=== PATIENT | female | born 1955 | race Caucasian/White ===

== ENCOUNTER 2016-10-09 19:02 | Emergency (ER) | payer OTHER, BC ==
[~2016-10-09] VITALS: Ht 167.6 cm; Wt 98.1 kg
[~2016-10-09 19:02] MED LIST: ZOFRAN ODT4 MG PO
[2016-10-09 19:32] LABS: HEMATOCRIT 39.9 % (36.0-46.0); MCH 32.1 PG (29.0-34.0); MCHC 33.6 G/DL (30.0-36.0); MCV 95.7 FL (83-99); MEAN PLAT.VOLUME 11.5 uM^3 (9.5-12.4); PLATELET COUNT 236 K/uL (156-360); RBC DIS.WIDTH-CV 12.7 % (11.8-14.6); RED BLOOD COUNT 4.17 M/uL (3.80-5.20); WHITE BLOOD COUNT 8.1 K/uL (4.1-10.2)
[2016-10-09 19:46] LABS: CHLORIDE 108 mEq/L (99-109); POTASSIUM 4.1 mEq/L (3.7-5.4); SODIUM 140 mEq/L (136-147)
[2016-10-09 19:48] LABS: GLUCOSE 102 mg/dL (70-99)
[2016-10-09 19:49] LABS: ANION GAP 7 MEQ/L (2-14)
[2016-10-09 19:50] LABS: TOTAL BILIRUBIN 0.3 mg/dL (0.0-1.0)
[2016-10-09 19:51] LABS: ALKALINE PHOSPHATASE 110 IU/L (3-129)
[2016-10-09 19:52] LABS: GFR ESTIMATE (CALCULATED) > 59 mL/min/
[2016-10-09 19:53] LABS: UREA NITROGEN (BUN) 13 mg/dL (9-23)
[2016-10-09 19:55] LABS: LIPASE 18 U/L (1.0-51.0)
[2016-10-09] MEDS ORDERED: MOTRIN800 MG PO (21:53)
[2016-10-09] MEDS ORDERED: FLEXERIL10 MG PO (21:53)
[2016-10-09 22:15] VITALS: BP 148/81
== END 2016-10-09 22:19 | disposition home or self-care (01) ==
LOC: EME → TRA 19:02 → EDBD 19:02 → TRA 22:19
PROVIDERS: Physician Assistant
DX: S16.1XXA Strain of muscle, fascia and tendon at neck level, initial encounter (principal); S20.212A Contusion of left front wall of thorax, initial encounter; S40.012A Contusion of left shoulder, initial encounter; V49.10XA Passenger injured in collision with unspecified motor vehicles in nontraffic accident, initial encounter
CPT/HCPCS: 71020; 80053; 83690; 85027; 99281; 99284